=== PATIENT | male | born 1960 | race Caucasian/White ===

== ENCOUNTER 2020-09-06 11:50 | Emergency (ER) | payer OTHER ==
[2020-09-06] MEDS ORDERED: Tenecteplase 50 MG Kit IV ONE (11:58)
[2020-09-06] MEDS ORDERED: Tenecteplase 50 MG Kit ONE (12:03)
[2020-09-06] MEDS ORDERED: Aspirin 81 MG Tab.Chew PO ONE (12:04)
[2020-09-06] MEDS ORDERED: Heparin Sodium 5,000 Units/ML Vial IVPUSH ONE (12:04)
[2020-09-06] MEDS ORDERED: Sodium Chloride 0.9% 10 ML Syringe FLUSH PRN (12:07)
--- NOTE | 2020-09-06 12:14 | EDM.PDOC ---
ED HPI GENERAL MEDICAL PROBLEM - General Chief Complaint: Chest Pain Stated Complaint: CHEST PAIN Time Seen by Provider: 09/06/20 11:55 Source of Information: Reports: Patient, Family History Limitations: Reports: No Limitations, Other (ED vital signs temp 96.7,, pulse 61, respiratory rate 21, blood pressure 154/100, pulse ox 95% on room air) - History of Present Illness INITIAL COMMENTS - FREE TEXT/NARRATIVE: 59-year-old male presents to the emergency department with complaints of midsternal chest pain that started at about 1030 this morning patient states he was working around the house when he developed what he describes as a pressure or discomfort. He denies any nausea, vomiting, diaphoresis or shortness of breath associated with pain. He denies any radiation of the chest pain. Patient states he took ibuprofen just prior to arrival and that did not help. He states he has a history of hypertension. Denies any history of previous [place], recent surgeries, or stroke. Mid-Sternal Chest Pain Score (Numeric/FACES): 7 - Related Data Allergies Allergy/AdvReac Type Severity Reaction Status Date / Time No Known Allergies Allergy Verified 09/06/20 12:07 Home Meds: Home Meds amLODIPine Besylate/Benazepril [Amlodipine-Benazepril 10-40 mg] 1 each PO DAILY 09/06/20 [History] carvediloL [Carvedilol] 25 mg PO BID 09/06/20 [History] diphenhydrAMINE HCL [Z-Sleep] 30 ml PO DAILY 09/06/20 [History] guanFACINE 1 mg PO DAILY 09/06/20 [History] ED ROS GENERAL - Review of Systems Review Of Systems: See Below Constitutional: Reports: No Symptoms. Denies: Diaphoresis HEENT: Reports: No Symptoms Respiratory: Reports: No Symptoms. Denies: Shortness of Breath, Pleuritic Chest Pain Cardiovascular: Reports: Chest Pain (midsternal pressure). Denies: Edema, Lightheadedness, Palpitations Endocrine: Reports: No Symptoms GI/Abdominal: Reports: No Symptoms : Reports: No Symptoms Musculoskeletal: Reports: No Symptoms Skin: Reports: No Symptoms Neurological: Reports: No Symptoms Psychiatric: Reports: No Symptoms Hematologic/Lymphatic: Reports: No Symptoms Immunologic: Reports: No Symptoms ED EXAM, GENERAL - Physical Exam Exam: See Below Exam Limited By: No Limitations General Appearance: Alert, WD/WN, Mild Distress Eye Exam: Bilateral Eye: PERRL Ears: Normal External Exam Nose: Normal Inspection Throat/Mouth: Normal Inspection, Normal Voice, No Airway Compromise Head: Atraumatic, Normocephalic Neck: Normal Inspection, Supple, Non-Tender, Full Range of Motion Respiratory/Chest: No Respiratory Distress, Lungs Clear, Normal Breath Sounds, No Accessory Muscle Use, Chest Non-Tender Cardiovascular: Normal Peripheral Pulses, Regular Rate, Rhythm, No Edema, No Murmur Peripheral Pulses: 2+: Radial (L), Radial (R) GI/Abdominal: Normal Bowel Sounds, Soft, Non-Tender, No Distention (Male) Exam: Deferred Rectal (Males) Exam: Deferred Back Exam: Normal Inspection, Full Range of Motion Extremities: Normal Inspection, Normal Range of Motion, Non-Tender, No Pedal Edema, Normal Capillary Refill Neurological: Alert, Oriented, Normal Cognition Psychiatric: Normal Affect, Normal Mood Skin Exam: Warm, Dry, Intact, Normal Color, No Rash Lymphatic: No Adenopathy #1 Interpretation EKG Date: 09/06/20 Time: 11:56 Rhythm: NSR Rate (Beats/Min): 61 [place]: Normal P-Wave: Present QRS: Normal ST-T: Elevated (in V1 and V2 with reciprocal changes in leads II, III, and AVF) QT: Normal Comparison: NA - No Prior EKG #2 Interpretation EKG Date: 09/06/20 Time: 12:52 Rhythm: NSR Rate (Beats/Min): 69 [place]: Normal P-Wave: Present QRS: Normal ST-T: Elevated (V1 and V2 with reciprocal changes in leads II, III, and AVF) QT: Normal Comparison: No Change Course - Vital Signs Text/Narrative:: Twelve-lead EKG reveals elevation in V1 and V2 with reciprocal changes in leads II, III and aVF. It appears this patient is having a STEMI. The patient's states that he does have an adverse allergy to aspirin as she states he took an 81 mg dose for about a week which led him to have a nosebleed. I believe it is in the patient's best interest to have aspirin 325 mg. I have ordered for the patient to receive aspirin 325 mg, TNKase, heparin bolus of 5000 units and heparin drip at 1000 units/h. I have phoned [facility] call and they will be returning my call. I have also ordered a CBC, CMP, magnesium, troponin, PT/INR, PTT, chest x-ray. Last Recorded V/S: Last Vital Signs Temp 96.7 F L 09/06/20 11:57 Pulse 68 09/06/20 12:42 Resp 21 H 09/06/20 11:57 BP 135/103 H 09/06/20 12:42 Pulse Ox 95 09/06/20 11:57 - Orders/Labs/Meds Orders: Active Orders 24 hr Category Date Time Status EKG Documentation Completion [RC] STAT Care 09/06/20 12:07 Active EKG Documentation Completion [RC] STAT Care 09/06/20 12:46 Active CBC W/O DIFF,HEMOGRAM [HEME] MOTH@0700 Lab 09/09/20 07:00 Ordered CBC W/O DIFF,HEMOGRAM [HEME] MOTH@0700 Lab 09/12/20 07:00 Ordered CBC W/O DIFF,HEMOGRAM [HEME] MOTH@0700 Lab 09/16/20 07:00 Ordered CBC W/O DIFF,HEMOGRAM [HEME] MOTH@0700 Lab 09/19/20 07:00 Ordered CBC W/O DIFF,HEMOGRAM [HEME] MOTH@0700 Lab 09/23/20 07:00 Ordered CBC W/O DIFF,HEMOGRAM [HEME] MOTH@0700 Lab 09/26/20 07:00 Ordered Heparin Sodium/D5W [Heparin 25,000 Units in D5W 500 ML] Med 09/06/20 12:15 Active 25,000 units in 500 ml IV TITRATE Sodium Chloride 0.9% [Saline Flush] Med 09/06/20 12:07 Active 10 ml FLUSH ASDIRECTED PRN Saline Lock Insert [OM.PC] Stat Oth 09/06/20 12:07 Ordered Medication Orders Heparin Sodium/Dextrose (Heparin 25,000 Units In D5w 500 Ml) 25,000 units in 500 mls @ 20 mls/hr IV TITRATE CARLOS; Protocol Last Admin: 09/06/20 12:18 Dose: 1,000 units/hr, 20 mls/hr Documented by: AKIL Cosigned by: MELISSA Sodium Chloride (Saline Flush) 10 ml FLUSH ASDIRECTED PRN PRN Reason: Keep Vein Open Last Admin: 09/06/20 12:21 Dose: 10 ml Documented by: AKIL Labs: Laboratory Tests 09/06/20 09/06/20 09/06/20 Range/Units 12:01 12:01 12:01 WBC 13.94 H (4.23-9.07) K/mm3 RBC 5.00 (4.63-6.08) M/mm3 Hgb 15.0 (13.7-17.5) gm/dl Hct 45.3 (40.1-51.0) % MCV 90.6 (79.0-92.2) fl MCH 30.0 (25.7-32.2) pg MCHC 33.1 (32.2-35.5) g/dl RDW Std Deviation 44.4 H (35.1-43.9) fL Plt Count 277 (163-337) K/mm3 MPV 10.2 (9.4-12.3) fl Neut % (Auto) 66.9 (34.0-67.9) % Lymph % (Auto) 19.2 L (21.8-53.1) % [place] % (Auto) 10.5 (5.3-12.2) % Eos % (Auto) 2.6 (0.8-7.0) Baso % (Auto) 0.4 (0.1-1.2) % Neut # (Auto) 9.33 H (1.78-5.38) K/mm3 Lymph # (Auto) 2.67 (1.32-3.57) K/mm3 [place] # (Auto) 1.47 H (0.30-0.82) K/mm3 Eos # (Auto) 0.36 (0.04-0.54) K/mm3 Baso # (Auto) 0.06 (0.01-0.08) K/mm3 Manual Slide Review Normal smear PT 10.8 (9.7-12.0) SECONDS INR 1.01 APTT 26.5 (21.7-31.4) SECONDS Sodium 144 (136-145) mEq/L Potassium 3.7 (3.5-5.1) mEq/L Chloride 103 (98-107) mEq/L Carbon Dioxide 30 (21-32) mEq/L Anion Gap 14.7 (5-15) BUN 15 (7-18) mg/dL Creatinine 1.2 (0.7-1.3) mg/dL Est Cr Clr Drug Dosing 72.75 mL/min Estimated GFR (MDRD) > 60 (>60) mL/min BUN/Creatinine Ratio 12.5 L (14-18) Glucose 185 H (74-106) mg/dL Calcium 9.1 (8.5-10.1) mg/dL Magnesium 2.3 (1.8-2.4) mg/dl Total Bilirubin 0.6 (0.2-1.0) mg/dL AST 23 (15-37) U/L ALT 41 (16-63) U/L Alkaline Phosphatase 70 (46-116) U/L CK-MB (CK-2) (0-3.6) ng/ml Troponin I < 0.017 (0.00-0.056) ng/mL Total Protein 8.2 (6.4-8.2) g/dl Albumin 3.7 (3.4-5.0) g/dl Globulin 4.5 gm/dL Albumin/Globulin Ratio 0.8 L (1-2) SARS-CoV-2 RNA ([facility]) (NEGATIVE) 09/06/20 09/06/20 Range/Units 12:01 12:08 WBC (4.23-9.07) K/mm3 RBC (4.63-6.08) M/mm3 Hgb (13.7-17.5) gm/dl Hct (40.1-51.0) % MCV (79.0-92.2) fl MCH (25.7-32.2) pg MCHC (32.2-35.5) g/dl RDW Std Deviation (35.1-43.9) fL Plt Count (163-337) K/mm3 MPV (9.4-12.3) fl Neut % (Auto) (34.0-67.9) % Lymph % (Auto) (21.8-53.1) % [place] % (Auto) (5.3-12.2) % Eos % (Auto) (0.8-7.0) Baso % (Auto) (0.1-1.2) % Neut # (Auto) (1.78-5.38) K/mm3 Lymph # (Auto) (1.32-3.57) K/mm3 [place] # (Auto) (0.30-0.82) K/mm3 Eos # (Auto) (0.04-0.54) K/mm3 Baso # (Auto) (0.01-0.08) K/mm3 Manual Slide Review PT (9.7-12.0) SECONDS INR APTT (21.7-31.4) SECONDS Sodium (136-145) mEq/L Potassium (3.5-5.1) mEq/L Chloride (98-107) mEq/L Carbon Dioxide (21-32) mEq/L Anion Gap (5-15) BUN (7-18) mg/dL Creatinine (0.7-1.3) mg/dL Est Cr Clr Drug Dosing mL/min Estimated GFR (MDRD) (>60) mL/min BUN/Creatinine Ratio (14-18) Glucose (74-106) mg/dL Calcium (8.5-10.1) mg/dL Magnesium (1.8-2.4) mg/dl Total Bilirubin (0.2-1.0) mg/dL AST (15-37) U/L ALT (16-63) U/L Alkaline Phosphatase (46-116) U/L CK-MB (CK-2) 1.2 (0-3.6) ng/ml Troponin I (0.00-0.056) ng/mL Total Protein (6.4-8.2) g/dl Albumin (3.4-5.0) g/dl Globulin gm/dL Albumin/Globulin Ratio (1-2) SARS-CoV-2 RNA ([facility]) Negative (NEGATIVE) Meds: Medications Generic Name Dose Route Start Last Admin Trade Name Freq PRN Reason Stop Dose Admin Heparin Sodium/Dextrose 25,000 units in 500 mls @ 20 mls/hr 09/06/20 12:15 09/06/20 12:18 Heparin 25,000 Units In D5w 500 Ml IV 1,000 units/hr TITRATE CARLOS 20 mls/hr Administration Protocol 1,000 UNITS/HR Sodium Chloride 10 ml 09/06/20 12:07 09/06/20 12:21 Saline Flush FLUSH 10 ml ASDIRECTED PRN Administration Keep Vein Open Discontinued Medications Generic Name Dose Route Start Last Admin Trade Name Freq PRN Reason Stop Dose Admin Aspirin 324 mg 09/06/20 12:04 09/06/20 12:11 Aspirin PO 09/06/20 12:05 324 mg ONETIME ONE Administration Clopidogrel Bisulfate 300 mg 09/06/20 12:29 09/06/20 12:35 Plavix PO 09/06/20 12:30 300 mg ONETIME ONE Administration Fentanyl 50 mcg 09/06/20 12:17 09/06/20 12:21 Sublimaze IVPUSH 09/06/20 12:18 50 mcg ONETIME ONE Administration Heparin Sodium (Porcine) 5,000 units 09/06/20 12:04 09/06/20 12:13 Heparin Sodium IVPUSH 09/06/20 12:05 5,000 units ONETIME ONE Administration Ondansetron HCl 4 mg/ Sodium 52 mls @ 100 mls/hr 09/06/20 12:56 Chloride IV 09/06/20 13:28 ONETIME ONE Metoprolol Tartrate 25 mg 09/06/20 12:29 09/06/20 12:42 Lopressor PO 09/06/20 12:30 25 mg ONETIME ONE Administration Ondansetron HCl Confirm 09/06/20 12:57 Zofran Administered 09/06/20 12:58 Dose 4 mg .ROUTE .STK-MED ONE Tenecteplase 50 mg 09/06/20 11:58 09/06/20 12:12 Tnkase IV 09/06/20 11:59 50 mg ONETIME ONE Administration Protocol Tenecteplase Confirm 09/06/20 12:03 09/06/20 12:13 Tnkase Administered 09/06/20 12:04 Not Given Dose 50 mg .ROUTE .STK-MED ONE - Radiology Interpretation Free Text/Narrative:: Nothing acute is appreciated on portable chest x-ray. There is no widened mediastinum. - Re-Assessments/Exams Free Text/Narrative Re-Assessment/Exam: 09/06/20 12:17 I have ordered for the patient to receive Fentanyl 50mcg IV push one time. 09/06/20 12:25 Dr. Clark, internal communications intern, has accepted care of the patient. He will be transferred to [facility] in [place]. Per Dr. Worley's request, [facility] helicopter will be arranged. Dr. Clark also request that we give the patient Plavix 300 mg p.o. x1 dose and metoprolol 25 mg p.o. x1 dose now. Patient reports that he is no longer having chest pain at this time. Denies complaints of nausea 09/06/20 12:42 [facility] call reporting that there will be a 30-minute delay for their helicopter to be able to launch from [place] to come and get the patient. I have elected to have the patient transported by ground ambulance as this will be the fastest route for the patient. 09/06/20 12:56 Labs reveal WBC 13.94 this elevation is likely due to a stress response, PT 10.8 INR 1.01, PTT 26.5, sodium 144, potassium 3.7, BUN 15, creatinine 1.2, glucose 185, troponin less than 0.017 Departure - Departure Time of Disposition: 13:00 Disposition: DC/Tfer to Acute Hospital 02 Reason for Transfer *Q: Primary PCI Indicated Condition: Fair Clinical Impression: STEMI (ST elevation myocardial infarction) Qualifiers: Involved coronary artery: unspecified coronary artery Qualified Code(s): I21.3 - ST elevation (STEMI) myocardial infarction of unspecified site Referrals: Barber Golden Jr, MD [Primary Care Provider] - Forms: ED Department Discharge Sepsis Event Note (ED) - Evaluation Sepsis Screening Result: No Definite Risk - Focused Exam Vital Signs: Vital Signs Temp Pulse Pulse Resp BP BP Pulse Ox 09/06/20 12:42 68 135/103 H 09/06/20 11:57 96.7 F L 61 21 H 154/100 H 95 - My Orders Last 24 Hours: My Active Orders 09/06/20 12:07 EKG Documentation Completion [RC] STAT Sodium Chloride 0.9% [Saline Flush] 10 ml FLUSH ASDIRECTED PRN Saline Lock Insert [OM.PC] Stat 09/06/20 12:15 Heparin Sodium/D5W [Heparin 25,000 Units in D5W 500 ML] 25,000 units in 500 ml IV TITRATE 09/06/20 12:46 EKG Documentation Completion [RC] STAT 09/09/20 07:00 CBC W/O DIFF,HEMOGRAM [HEME] MOTH@0700 09/12/20 07:00 CBC W/O DIFF,HEMOGRAM [HEME] MOTH@0700 09/16/20 07:00 CBC W/O DIFF,HEMOGRAM [HEME] MOTH@0700 09/19/20 07:00 CBC W/O DIFF,HEMOGRAM [HEME] MOTH@0709/23/20 07:00 CBC W/O DIFF,HEMOGRAM [HEME] MOTH@0709/26/20 07:00 CBC W/O DIFF,HEMOGRAM [HEME] MOTH@07 - Assessment/Plan Last 24 Hours: My Active Orders 09/06/20 12:07 EKG Documentation Completion [RC] STAT Sodium Chloride 0.9% [Saline Flush] 10 ml FLUSH ASDIRECTED PRN Saline Lock Insert [OM.PC] Stat 09/06/20 12:15 Heparin Sodium/D5W [Heparin 25,000 Units in D5W 500 ML] 25,000 units in 500 ml IV TITRATE 09/06/20 12:46 EKG Documentation Completion [RC] STAT 09/09/20 07:00 CBC W/O DIFF,HEMOGRAM [HEME] MOTH@0709/12/20 07:00 CBC W/O DIFF,HEMOGRAM [HEME] MOTH@0709/16/20 07:00 CBC W/O DIFF,HEMOGRAM [HEME] MOTH@0709/19/20 07:00 CBC W/O DIFF,HEMOGRAM [HEME] MOTH@0709/23/20 07:00 CBC W/O DIFF,HEMOGRAM [HEME] MOTH@0709/26/20 07:00 CBC W/O DIFF,HEMOGRAM [HEME] MOTH@699
[2020-09-06] MEDS ORDERED: Heparin Sodium/D5W 25,000 UNITS/500 ML BAG IV SCH (12:15)
[2020-09-06] MEDS ORDERED: fentaNYL 100 MCG/2 ML SDV IVPUSH ONE (12:17)
[2020-09-06] MEDS ORDERED: Clopidogrel 75 MG Tab PO ONE (12:29)
[2020-09-06] MEDS ORDERED: Metoprolol Tartrate 25 MG Tab PO ONE (12:29)
--- NOTE | 2020-09-06 12:50 | CR ---
Chest: Portable view of the chest was obtained. Comparison: No prior chest imaging is available. Heart size and mediastinum are within normal limits for portable technique. Lungs show no definite acute parenchymal change. Minimal scoliosis is noted within the spine. Impression: 1. Nothing acute is seen on portable chest x-ray. Diagnostic code #2
[2020-09-06] MEDS ORDERED: Ondansetron 4 MG/2 ML SDV IVPUSH ONE (12:52)
[2020-09-06] MEDS ORDERED: Ondansetron 4 MG in Sodium Chloride 0.9% 50 ML IV ONE (12:56)
[2020-09-06] MEDS ORDERED: Ondansetron 4 MG/2 ML SDV ONE (12:57)
== END 2020-09-06 12:55 ==
LOC: JD.ED 11:50
DX: I21.3 ST elevation (STEMI) myocardial infarction of unspecified site (principal); D72.829 Elevated white blood cell count, unspecified; Z20.822 Contact with and (suspected) exposure to COVID-19
CPT/HCPCS: 36415; 37195; 71045; 80053; 82553; 83735; 84484; 85025; 85610; 85730; 87635; 93005; 96365; 96375; 99285; A9270; J1644; J2405; J3010; J3101; 93010; 99284; U0002

== ENCOUNTER 2021-07-13 09:10 | Emergency (ER) | payer OTHER ==
[2021-07-13] MEDS ORDERED: HYDROmorphone 1 MG/ML Syringe IVPUSH ONE (09:39)
[2021-07-13] MEDS ORDERED: Metoclopramide 10 MG/2 ML SDV IVPUSH ONE (09:40)
--- NOTE | 2021-07-13 09:41 | EDM.PDOC ---
ED HPI GENERAL MEDICAL PROBLEM - General Chief Complaint: Flank Pain Stated Complaint: KIDNEY STONES Time Seen by Provider: 07/13/21 09:26 Source of Information: Reports: Patient, Family (spouse) - History of Present Illness INITIAL COMMENTS - FREE TEXT/NARRATIVE: 60-year-old male presents to the ED with acute onset of left flank pain starting middle of night he believes around 330 or 4:00. It is staying in his left flank and not radiaing into the abdomen or groin. He has had renal colic at least 4 times in the past with the last episode occurring about 2-1/2 years ago. Associated nausea without vomiting. Pain is intensifying over the last few hours. He has not noted any blood in his urine. He did notice a few drops of blood however on his undershorts this morning. He felt his left back hurting a bit 2 weeks ago but then it seemed to clear up. No associated dysuria urgency or frequency. He has nocturia usually x1 or 2. No fever or chills. Onset: Today, Sudden Onset Date: 07/13/21 Onset Time: 03:30 Duration: Hour(s):, Colic, Constant (Left flank pain), Getting Worse Location: Reports: Back (Left flank pain with a colicky component but pain is constant.) Quality: Reports: Ache, Throbbing Severity: Moderate (7-8 out of 10.) Improves with: Reports: None Worsens with: Reports: None Context: Reports: Other (Spontaneous occurrence of left flank pain during the night). Denies: Activity, Exercise, Lifting, Sick Contact, Trauma Associated Symptoms: Reports: Loss of Appetite, Malaise (Nausea without vomit ing), Nausea/Vomiting. 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 (see below) (None.) - Related Data Allergies Allergy/AdvReac Type Severity Reaction Status Date / Time No Known Allergies Allergy Verified 09/06/20 12:07 Home Meds: Home Meds amLODIPine Besylate/Benazepril [Amlodipine-Benazepril 10-40 mg] 1 each PO DAILY 09/06/20 [History] carvediloL [Carvedilol] 25 mg PO BID 09/06/20 [History] diphenhydrAMINE HCL [Z-Sleep] 30 ml PO DAILY 09/06/20 [History] guanFACINE 1 mg PO DAILY 09/06/20 [History] Ondansetron [Zofran] 4 mg BUCCAL Q6H PRN #6 tab 07/13/21 [Rx] oxyCODONE HCl/Acetaminophen [Percocet 5-325 mg Tablet] 1 - 2 each PO Q4H PRN #12 tablet 07/13/21 [Rx] Past Medical History Cardiovascular History: Reports: Hypertension Genitourinary History: Reports: Renal Calculus (Least 4 attacks of renal colic. He has had to have lithotripsy x2. 1 stone was 10.2 mm.) Social & Family History - Family History Cardiac: Reports: MD - Caffeine Use Caffeine Use: Reports: Tea - Living Situation & Occupation Living situation: Reports: Occupation: Employed ED ROS GENERAL - Review of Systems Review Of Systems: See Below Constitutional: Reports: Fatigue, Decreased Appetite (Not sleeping much last night.). Denies: Fever, Chills, Malaise HEENT: Reports: Glasses Respiratory: Reports: No Symptoms Cardiovascular: Reports: Blood Pressure Problem Endocrine: Reports: No Symptoms GI/Abdominal: Reports: Constipation, Other (Occasional problems with GERD). Denies: Abdominal Pain, Anorexia, Black Stool, Bloody Stool, Decreased Appetite, Difficulty Swallowing, Distension, Flatus, Hematemesis (Rare problems with constipation), Hematochezia : Reports: Flank Pain, Other (See history of present illness nocturia x2) Musculoskeletal: Reports: Joint Pain (Knees hips lower back) Skin: Reports: No Symptoms ( shoulders at times) Neurological: Reports: No Symptoms Psychiatric: Reports: No Symptoms Hematologic/Lymphatic: Reports: No Symptoms Immunologic: Reports: No Symptoms ED EXAM, RENAL/ - Physical Exam Exam: See Below Exam Limited By: No Limitations General Appearance: Alert, WD/WN, Mild Distress, Other (Very stoic fellow. Temperature is 36.3 degrees. Heart rate 56 and sinus respiratory 16 with O2 sats of 98% room air. BP 154/97) Eye Exam: Bilateral Eye: Normal Inspection (No blepharal pallor or scleral icterus), PERRL Throat/Mouth: Normal Inspection, Normal Lips, Normal Voice Head: Atraumatic, Normocephalic Neck: Normal Inspection, Supple, Non-Tender, Full Range of Motion Respiratory/Chest: No Respiratory Distress, Lungs Clear, Normal Breath Sounds, No Accessory Muscle Use, Chest Non-Tender Cardiovascular: Normal Peripheral Pulses, Regular Rate, Rhythm, No Edema, No Gallop, No JVD, No Rub, Bradycardia GI/Abdominal: Soft, Non-Tender, No Organomegaly, No Distention, Abnormal Bowel Sounds (Bowel sounds are few and far between.). No: Normal Bowel Sounds, Guarding, Rigid, Rebound (Male) Exam: No Hernia Back Exam: Normal Inspection, CVA Tenderness (L) (Minimal left flank tenderness on palpation). No: CVA Tenderness (R) Extremities: Normal Inspection, Normal Range of Motion, Non-Tender, No Pedal Edema, Slow Capillary Refill Neurological: Alert, Oriented, CN II-XII Intact, Normal Cognition Psychiatric: Normal Affect, Normal Mood Skin Exam: Warm, Dry, Intact, Normal Color, No Rash Course - Vital Signs Last Recorded V/S: Last Vital Signs Temp 36.3 C 07/13/21 09:22 Pulse 56 L 07/13/21 09:22 Resp 16 07/13/21 09:22 BP 154/97 H 07/13/21 09:22 Pulse Ox 98 07/13/21 09:22 - Orders/Labs/Meds Orders: Active Orders 24 hr Category Date Time Status Dextrose 5%-0.9% NaCl [Dextrose 5%-Normal Saline] 1,000 Med 07/13/21 09:45 Active ml IV ASDIRECTED Ketorolac [Toradol] Med 07/13/21 09:45 Active 30 mg IVPUSH ONETIME Medication Orders Dextrose/Sodium Chloride (Dextrose 5%-Normal Saline) 1,000 mls @ 150 mls/hr IV ASDIRECTED CARLOS Last Admin: 07/13/21 09:51 Dose: 150 mls/hr Documented by: GENOVEVA Ketorolac Tromethamine (Ketorolac 30 Mg/Ml Sdv) 30 mg IVPUSH ONETIME CARLOS Last Admin: 07/13/21 09:52 Dose: 30 mg Documented by: GENOVEVA Labs: Laboratory Tests 07/13/21 Range/Units 09:28 Urine Color Yellow (Yellow) Urine Appearance Clear (Clear) Urine pH 7.0 (5.0-8.0) Ur Specific [place] 1.025 (1.005-1.030) Urine Protein Trace H (Negative) Urine Glucose (UA) Negative (Negative) Urine Ketones Negative (Negative) Urine Occult Blood 3+ H (Negative) Urine Nitrite Negative (Negative) Urine Bilirubin Negative (Negative) Urine Urobilinogen 0.2 (0.2-1.0) Ur Leukocyte Esterase Negative (Negative) Urine RBC >100 H (0-5) /hpf Urine WBC 0-5 (0-5) /hpf Ur Squamous Epith Cells 0-5 (0-5) /hpf Urine Bacteria Few (FEW) /hpf Urine Mucus Few (FEW) /hpf Meds: Medications Generic Name Dose Route Start Last Admin Trade Name Freq PRN Reason Stop Dose Admin Dextrose/Sodium Chloride 1,000 mls @ 150 mls/hr 07/13/21 09:45 07/13/21 09:51 Dextrose 5%-Normal Saline IV 150 mls/hr ASDIRECTED CARLOS Administration Ketorolac Tromethamine 30 mg 07/13/21 09:45 07/13/21 09:52 Ketorolac 30 Mg/Ml Sdv IVPUSH 30 mg ONETIME CARLOS Administration Discontinued Medications Generic Name Dose Route Start Last Admin Trade Name Freq PRN Reason Stop Dose Admin Hydromorphone HCl 1 mg 07/13/21 09:39 07/13/21 09:50 Hydromorphone 1 Mg/Ml Syringe IVPUSH 07/13/21 09:40 1 mg ONETIME ONE Administration Metoclopramide HCl 10 mg 07/13/21 09:40 07/13/21 09:50 Metoclopramide 10 Mg/2 Ml Sdv IVPUSH 07/13/21 09:41 10 mg ONETIME ONE Administration - Radiology Interpretation Free Text/Narrative:: 60-year-old male presented to the ED with acute onset of left flank pain starting around 0 330 to 4 hours in the morning. Pain is constant with a colicky component. Patient recognized the signs and symptoms of kidney stone since she has had 4 bouts of renal lithiasis in the past. He has lithotripsy x2. 1 stone was greater than 10.2 mm.. Pain is staying in the left flank no radiation to the abdomen or groin. Associated nausea without vomiting. Examination is otherwise normal. Plan IV D5 normal saline at 150 mils an hour. He given Dilaudid 1 mg IV for pain relief with Reglan 7.5 mg IV for nausea relief and Toradol 30 mg IV for pain relief. Urinalysis to be collected. He will have CT of the abdomen per renal protocol - Re-Assessments/Exams Free Text/Narrative Re-Assessment/Exam: 07/13/21 10:35 Patient is feeling much improved. Pain is pretty well gone. CT exam reveals a stone in the proximal left ureter approximately 5.4 mm in length. Moderate degree of obstruction with significant perinephric stranding. There is cortical atrophy of both kidneys. Liver appears normal without any intraductal dilatation. Gallbladder is present without any stones. Pancreas appears normal there is several calcifications which appear vascular within the spleen. Spleen is normal size bowel does contain increased stool. Aorta looks very good with very minimal atherosclerosis. No aneurysm. Prostate is slightly enlarged. Plan patient be discharged home on Percocet tab 5/325 mg strength 1 or 2 every 4-6 hours as needed for pain relief. Zofran 4 mg sublingual every 4 to 6 hours p.m. for nausea relief. A strainer to make sure that he passes the stone sometime within the next 2 weeks. 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 He does not take Motrin due to coronary artery disease. 07/13/21 10:43 over read by radiologist indicates the stone is approximately 5.7 mm in size. No other abnormal calcifications are seen within the kidneys or ureters. No bladder calculi identified visualized lung bases show nothing acute. Small scattered calcified granulomas are seen within the spleen as noted above. Adrenal glands show no nodules. Pancreas is within normal limits. Gallbladder contains no calcified gallstones. Abdominal aorta shows minimal atherosclerotic calcification which continues into the iliac vessels. No aneurysm is seen. No retroperitoneal adenopathy or mesenteric abnormalities are seen. Appendix is seen which is normal. Diverticuli are seen within the sigmoid colon with no inflammatory change or evidence of diverticulitis. Prostate gland is somewhat enlarged. No pelvic mass or adenopathy is seen. Small fat-containing left inguinal hernia noted.Urinalysis shows trace of protein 3+ occult blood and the micro reveals negative leukocyte esterase with greater than 100 red blood cells per high-power field and no white cells. Departure - Departure Time of Disposition: 10:37 Disposition: Home, Self-Care 01 Condition: Fair Clinical Impression: Renal colic on left side - Discharge Information *PRESCRIPTION DRUG MONITORING PROGRAM REVIEWED*: Not Applicable *COPY OF PRESCRIPTION DRUG MONITORING REPORT IN PATIENT [place]: Not Applicable Prescriptions: oxyCODONE HCl/Acetaminophen [Percocet 5-325 mg Tablet] 1 - 2 each PO Q4H PRN #12 tablet PRN Reason: pain relief. Ondansetron [Zofran] 4 mg BUCCAL Q6H PRN #6 tab PRN Reason: nausea or vomiting Instructions: Low-Purine Eating Plan, Kidney Stones, Renal Colic, [id number] Referrals: Duy Polanco MD [Primary Care Provider] - Forms: ED Department Discharge, ED Return to Work/School Form Additional Instructions: Evaluation in the emergency room this morning in regards to acute onset of left flank pain associate with mild nausea and no vomiting. History of kidney stones passage at least 4 times in the past and lithotripsy on 2 occasions. Examination and history were compatible with renal colic. You were treated with intravenous medications Dilaudid 1 mg and Reglan 7.5 mg and Toradol 30 mg IV for pain relief. CT scan of the abdomen confirmed a 5.4 mm stone in the upper or proximal left ureter. It has about 9 inches to travel before it reaches the urinary bladder. He can drop it down the ureteric tube at any time over the next 2 weeks. She does screening your urine once the pain has reached your lowe r abdomen or groin with a urine strainer. If the stone has not passed on its own over the next 2 weeks then consultation with urologist is advised. In the interim may use Zofran 4 mg under the tongue every 4-6 hours as needed for relief of nausea or vomiting. Percocet tab 1 or 2 tablets every 4-6 hours necessary for pain relief as needed. You would need to return to the hospital if you develop any signs of fever chills or pain is uncontrolled or for severe nausea and vomiting occurs. 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 Note written to excuse you from work in this regard Sepsis Event Note (ED) - Focused Exam Vital Signs: Vital Signs Temp Pulse Resp BP Pulse Ox 07/13/21 09:22 36.3 C 56 L 16 154/97 H 98 - My Orders Last 24 Hours: My Active Orders 07/13/21 09:45 Dextrose 5%-0.9% NaCl [Dextrose 5%-Normal Saline] 1,000 ml IV ASDIRECTED Ketorolac [Toradol] 30 mg IVPUSH ONETIME - Assessment/Plan Last 24 Hours: My Active Orders 07/13/21 09:45 Dextrose 5%-0.9% NaCl [Dextrose 5%-Normal Saline] 1,000 ml IV ASDIRECTED Ketorolac [Toradol] 30 mg IVPUSH ONETIME
[2021-07-13] MEDS ORDERED: Dextrose 5%-0.9% NaCl 1,000 ML IV SCH (09:45)
[2021-07-13] MEDS ORDERED: Ketorolac 30 MG/ML SDV IVPUSH SCH (09:45)
--- NOTE | 2021-07-13 10:28 | CT ---
CT abdomen and pelvis Technique: Multiple axial sections were obtained from above the dome of the diaphragm inferiorly through the pubic symphysis. Intravenous and oral contrast were not utilized. Study has been performed as a ureteral stone protocol. Comparison: No prior abdominal or pelvic imaging is available. Findings: Mild inflammatory change is seen around the left kidney. Left collecting system is also slightly dilated. These findings are caused by an obstructing calculus located slightly past the UPJ measuring 5.7 mm. No other abnormal calcifications are seen within the kidneys or ureters. No bladder calculi are seen. Visualized lung bases show nothing acute. Noncontrast appearance of the liver shows no focal parenchymal abnormality. Spleen appears normal in size. Small scattered calcified granulomas are seen within the spleen. Adrenal glands show no nodule. Pancreas shows no abnormality. Gallbladder contains no calcified gallstones. Abdominal aorta shows mild atherosclerotic calcification which continues into the iliac vessels. No aneurysm is seen. No retroperitoneal adenopathy or mesenteric abnormalities are seen. Appendix is seen which is normal. Diverticuli are seen within the sigmoid colon with no inflammatory change or diverticulitis. Prostate gland is somewhat enlarged. No pelvic mass or adenopathy is seen. Small fat-containing left inguinal hernia is noted. Bone window settings were reviewed which appear within normal limits for the patient's age. Impression: 1. Inflammatory change around the left kidney with slightly prominent left-sided collecting system. These findings are caused by an obstructing calculus located slightly past the UPJ measuring 5.7 mm. 2. Other findings as described above which are felt to be nonacute. Diagnostic code #3
== END 2021-07-13 10:45 | disposition home or self-care (01) ==
LOC: JD.ED 09:10
DX: N20.1 Calculus of ureter (principal); I10 Essential (primary) hypertension; Z79.899 Other long term (current) drug therapy
CPT/HCPCS: 74176; 81001; 96374; 96375; 99284; J1170; J1885; J2765; J7042

== ENCOUNTER 2021-07-19 07:33 | Emergency (ER) | payer OTHER ==
[2021-07-19] MEDS ORDERED: Ondansetron 4 MG/2 ML SDV IVPUSH ONE (08:10)
[2021-07-19] MEDS ORDERED: Sodium Chloride 0.9% 10 ML Syringe FLUSH PRN (08:10)
[2021-07-19] MEDS ORDERED: Ketorolac 30 MG/ML SDV IVPUSH ONE (08:12)
[2021-07-19] MEDS ORDERED: Sodium Chloride 0.9% 1,000 ML IV SCH (08:15)
--- NOTE | 2021-07-19 08:34 | EDM.PDOC ---
ED HPI GENERAL MEDICAL PROBLEM - General Chief Complaint: Abdominal Pain Stated Complaint: CONSIPATION/KIDNEY STONE Time Seen by Provider: 07/19/21 08:00 Source of Information: Reports: Patient History Limitations: Reports: No Limitations - History of Present Illness INITIAL COMMENTS - FREE TEXT/NARRATIVE: The patient presents with left flank pain and abdominal pain. The patient was diagnosed with a 5.7mm kidney stone just distal to the UPJ on Wednesday. He has been taking oxycodone for the pain. He does not think he passed the stone. He still has pain. He also has some left lower abdominal pain. He has not had a bowel movement since Wednesday. He feels he is constipated. He has nausea and some vomiting. He has tried prune juice and a laxative to help have a bowel mo vement without luck. Onset: Gradual Duration: Day(s): Location: Reports: Abdomen, Back Quality: Reports: Sharp Severity: Severe Improves with: Reports: None Worsens with: Reports: None Associated Symptoms: Reports: Nausea/Vomiting. Denies: Chest Pain, Cough, Fever/Chills, Headaches, Shortness of Breath Abdomen Pain Score (Numeric/FACES): 8 - Related Data Allergies Allergy/AdvReac Type Severity Reaction Status Date / Time No Known Allergies Allergy Verified 07/19/21 07:47 Home Meds: Home Meds amLODIPine Besylate/Benazepril [Amlodipine-Benazepril 10-40 mg] 1 each PO DAILY 09/06/20 [History] carvediloL [Carvedilol] 25 mg PO BID 09/06/20 [History] diphenhydrAMINE HCL [Z-Sleep] 30 ml PO DAILY 09/06/20 [History] guanFACINE 1 mg PO DAILY 09/06/20 [History] Ondansetron [Zofran] 4 mg BUCCAL Q6H PRN #6 tab 07/13/21 [Rx] oxyCODONE HCl/Acetaminophen [Percocet 5-325 mg Tablet] 1 - 2 each PO Q4H PRN #12 tablet 07/13/21 [Rx] Ondansetron [Zofran ODT] 4 mg PO Q6H PRN #20 tab.dis 07/19/21 [Rx] oxyCODONE HCl/Acetaminophen [Percocet 5-325 mg Tablet] 1 - 2 each PO Q6HR PRN #20 tablet 07/19/21 [Rx] Past Medical History Cardiovascular History: Reports: High Cholesterol, Hypertension, [place] Other Gastrointestinal History: hernia operation Genitourinary History: Reports: Renal Calculus - Past Surgical History Other Cardiovascular Surgeries/Procedures: stent placed GI Surgical History: Reports: Appendectomy Social & Family History - Family History Cardiac: Reports: [place] - Tobacco Use Tobacco Use Status *Q: Never Tobacco User - Caffeine Use Caffeine Use: Reports: Tea - Recreational Drug Use Recreational Drug Use: No - Living Situation & Occupation Living situation: Reports: Occupation: Employed ED ROS GENERAL - Review of Systems Review Of Systems: See Below Constitutional: Reports: No Symptoms HEENT: Reports: No Symptoms Respiratory: Reports: No Symptoms Cardiovascular: Reports: No Symptoms Endocrine: Reports: No Symptoms GI/Abdominal: Reports: Abdominal Pain, Nausea : Reports: Flank Pain Musculoskeletal: Reports: No Symptoms Skin: Reports: No Symptoms Neurological: Reports: No Symptoms ED EXAM, GI/ABD - Physical Exam Exam: See Below Exam Limited By: No Limitations General Appearance: Alert, No Apparent Distress Ears: Normal External Exam Nose: Normal Inspection Head: Atraumatic, Normocephalic Neck: Normal Inspection Respiratory/Chest: No Respiratory Distress, Lungs Clear, Normal Breath Sounds Cardiovascular: Regular Rate, Rhythm, No Edema, No Murmur GI/Abdominal Exam: Soft, No Organomegaly, No Mass, Tender (moderate tenderness to the left lower abdomen) Back Exam: Normal Inspection Course - Vital Signs Last Recorded V/S: Last Vital Signs Temp 98.3 F 07/19/21 07:43 Pulse 68 07/19/21 07:43 Resp 12 07/19/21 07:43 BP 167/96 H 07/19/21 07:43 Pulse Ox 96 07/19/21 07:43 - Orders/Labs/Meds Orders: Active Orders 24 hr Category Date Time Status Peripheral IV Care [RC] . DIRECTED Care 07/19/21 08:11 Active Sodium Chloride 0.9% [Normal Saline] 1,000 ml Med 07/19/21 08:15 Active IV ASDIRECTED Sodium Chloride 0.9% [Saline Flush] Med 07/19/21 08:10 Active 10 ml FLUSH ASDIRECTED PRN ED Antiemetic Medication Reflex [OM.PC] Stat Oth 07/19/21 08:11 Ordered Peripheral IV Insertion Adult [OM.PC] Stat Oth 07/19/21 08:10 Ordered Medication Orders Sodium Chloride (Normal Saline) 1,000 mls @ 125 mls/hr IV ASDIRECTED CARLOS Last Admin: 07/19/21 08:30 Dose: 125 mls/hr Documented by: TAHIR Sodium Chloride (Sodium Chloride 0.9% 10 Ml Syringe) 10 ml FLUSH ASDIRECTED PRN PRN Reason: Keep Vein Open Last Admin: 07/19/21 08:30 Dose: 10 ml Documented by: TAHIR Labs: Laboratory Tests 07/19/21 07/19/21 07/19/21 Range/Units 08:10 08:25 08:25 WBC 12.16 H (4.23-9.07) K/mm3 RBC 4.76 (4.63-6.08) M/mm3 Hgb 14.4 (13.7-17.5) gm/dl Hct 44.2 (40.1-51.0) % MCV 92.9 H (79.0-92.2) fl MCH 30.3 (25.7-32.2) pg MCHC 32.6 (32.2-35.5) g/dl RDW Std Deviation 44.0 H (35.1-43.9) fL Plt Count 233 (163-337) K/mm3 MPV 10.1 (9.4-12.3) fl Neut % (Auto) 79.0 H (34.0-67.9) % Lymph % (Auto) 10.2 L (21.8-53.1) % [place] % (Auto) 10.0 (5.3-12.2) % Eos % (Auto) 0.4 L (0.8-7.0) Baso % (Auto) 0.2 (0.1-1.2) % Neut # (Auto) 9.61 H (1.78-5.38) K/mm3 Lymph # (Auto) 1.24 L (1.32-3.57) K/mm3 [place] # (Auto) 1.21 H (0.30-0.82) K/mm3 Eos # (Auto) 0.05 (0.04-0.54) K/mm3 Baso # (Auto) 0.03 (0.01-0.08) K/mm3 Sodium 141 (136-145) mEq/L Potassium 3.9 (3.5-5.1) mEq/L Chloride 102 (98-107) mEq/L Carbon Dioxide 30 (21-32) mEq/L Anion Gap 12.9 (5-15) BUN 22 H (7-18) mg/dL Creatinine 1.8 H (0.7-1.3) mg/dL Est Cr Clr Drug Dosing 47.90 mL/min Estimated GFR (MDRD) 39 (>60) mL/min BUN/Creatinine Ratio 12.2 L (14-18) Glucose 121 H (70-99) mg/dL Calcium 8.6 (8.5-10.1) mg/dL Total Bilirubin 0.5 (0.2-1.0) mg/dL AST 16 (15-37) U/L ALT 17 (16-63) U/L Alkaline Phosphatase 69 (46-116) U/L Total Protein 7.9 (6.4-8.2) g/dl Albumin 3.5 (3.4-5.0) g/dl Globulin 4.4 gm/dL Albumin/Globulin Ratio 0.8 L (1-2) Lipase 86 (73-393) U/L Urine Color Yellow (Yellow) Urine Appearance Clear (Clear) Urine pH 5.5 (5.0-8.0) Ur Specific [place] > or = 1.030 (1.005-1.030) Urine Protein 2+ H (Negative) Urine Glucose (UA) Negative (Negative) Urine Ketones 1+ H (Negative) Urine Occult Blood 3+ H (Negative) Urine Nitrite Negative (Negative) Urine Bilirubin Negative (Negative) Urine Urobilinogen 1.0 (0.2-1.0) Ur Leukocyte Esterase Negative (Negative) Urine RBC >100 H (0-5) /hpf Urine WBC 0-5 (0-5) /hpf Ur Squamous Epith Cells 0-5 (0-5) /hpf Urine Bacteria Few (FEW) /hpf Urine Mucus Few (FEW) /hpf Meds: Medications Generic Name Dose Route Start Last Admin Trade Name Freq PRN Reason Stop Dose Admin Sodium Chloride 1,000 mls @ 125 mls/hr 07/19/21 08:15 07/19/21 08:30 Normal Saline IV 125 mls/hr ASDIRECTED CARLOS Administration Sodium Chloride 10 ml 07/19/21 08:10 07/19/21 08:30 Sodium Chloride 0.9% 10 Ml Syringe FLUSH 10 ml ASDIRECTED PRN Administration Keep Vein Open Discontinued Medications Generic Name Dose Route Start Last Admin Trade Name Nicholas PRN Reason Stop Dose Admin Ketorolac Tromethamine 30 mg 07/19/21 08:12 07/19/21 08:29 Ketorolac 30 Mg/Ml Sdv IVPUSH 07/19/21 08:13 30 mg ONETIME ONE Administration Ondansetron HCl 4 mg 07/19/21 08:10 07/19/21 08:30 Ondansetron 4 Mg/2 Ml Sdv IVPUSH 07/19/21 08:11 4 mg ONETIME ONE Administration - Re-Assessments/Exams Free Text/Narrative Re-Assessment/Exam: 07/19/21 08:34 I ordered an IV NS at 125mL/hr, zofran 4mg IV, toradol 30mg IV, labs, UA and a KUB. 07/19/21 11:28 His WBC was elevated at 12.16. His creatinine is elevated at 1.8. In August it was 1.2. His lipase was normal. His UA shows blood and no UTI. I called [facility] and talked with Dr Naik the urologist cotton puller and he can get the patient in on Wednesday with his MANUFACTURING ENGINEERING MANAGER Parisa [facility]. I will discharge him home. Departure - Departure Time of Disposition: 11:50 Disposition: Home, Self-Care 01 Condition: Good Clinical Impression: Kidney stone on left side, Renal colic on left side, Ureteral calculus, left - Discharge Information *PRESCRIPTION DRUG MONITORING PROGRAM REVIEWED*: Not Applicable *COPY OF PRESCRIPTION DRUG MONITORING REPORT IN PATIENT [place]DE[place]: Not Applicable Prescriptions: oxyCODONE HCl/Acetaminophen [Percocet 5-325 mg Tablet] 1 - 2 each PO Q6HR PRN #20 tablet PRN Reason: Pain Ondansetron [Zofran ODT] 4 mg PO Q6H PRN #20 tab.dis PRN Reason: Nausea\vomiting Referrals: Aleyda Bernard MD [Primary Care Provider] - Forms: ED Department Discharge Additional Instructions: Take your medications as prescribed. I have written for more percocets and zofran if you need them. Drink plenty of fluids. Use a fleets enema to help have a bowel movement. You can also try some magnesium citrate. Follow up with ANDRA Lopez with the urology clinic at [facility] on Wednesday at 2:30 [place] time. Please return if you are worse. Sepsis Event Note (ED) - Evaluation Sepsis Screening Result: No Definite Risk - Focused Exam Vital Signs: Vital Signs Temp Pulse Resp BP Pulse Ox 07/19/21 07:43 98.3 F 68 12 167/96 H 96 - My Orders Last 24 Hours: My Active Orders 07/19/21 08:10 Sodium Chloride 0.9% [Saline Flush] 10 ml FLUSH ASDIRECTED PRN Peripheral IV Insertion Adult [OM.PC] Stat 07/19/21 08:11 Peripheral IV Care [RC] . DIRECTED ED Antiemetic Medication Reflex [OM.PC] Stat 07/19/21 08:15 Sodium Chloride 0.9% [Normal Saline] 1,000 ml IV ASDIRECTED - Assessment/Plan Last 24 Hours: My Active Orders 07/19/21 08:10 Sodium Chloride 0.9% [Saline Flush] 10 ml FLUSH ASDIRECTED PRN Peripheral IV Insertion Adult [OM.PC] Stat 07/19/21 08:11 Peripheral IV Care [RC] . DIRECTED ED Antiemetic Medication Reflex [OM.PC] Stat 07/19/21 08:15 Sodium Chloride 0.9% [Normal Saline] 1,000 ml IV ASDIRECTED
--- NOTE | 2021-07-19 09:15 | CR ---
Abdomen: Supine view of the abdomen was obtained. Comparison: Prior abdominal and pelvic CT exam of 07/13/21. Small calcification is seen slightly above the L5 transverse process most likely representing previously noted more proximal ureteral stone on CT study. On plain film exam this measures about 4 mm which is slightly overestimated in measurement. No other abnormal calcifications are appreciated. Bowel gas pattern appears normal. Slight degenerative change is noted within the spine. Minimal joint space narrowing is seen within the superior right hip. Impression: 1. Small 4 mm calcification slightly above the left L5 transverse process most likely representing previous ureteral stone seen more proximal on prior CT exam. 2. Mild degenerative change without other acute abnormality being seen. Diagnostic code #3
--- NOTE | 2021-07-19 10:04 | CT ---
CT abdomen and pelvis Technique: Multiple axial sections were obtained from above the dome of the diaphragm inferiorly through the pubic symphysis. Intravenous and oral contrast were not utilized. Reconstructed coronal and sagittal images were obtained. Comparison: Prior CT abdomen and pelvis study of 07/13/21. Findings: Small obstructing calculus is seen within the proximal left ureter. This finding measures approximately 5-6 mm. This small ureteral stone has minimally moved distally from prior exam. This causes proximal hydronephrosis with mild increasing inflammatory change around the left renal pelvis. Right and left kidneys show no other abnormal calcifications. Cyst is noted within the right kidney measuring approximately 2.8 cm. Visualized lung bases show nothing acute. Noncontrast appearance of the liver shows no focal abnormality. Gallbladder contains no calcified gallstones. Calcified granulomas are seen within the spleen. Spleen shows no enlargement. Adrenal glands show no discrete nodule. Pancreas shows no discrete abnormality. Abdominal aorta shows mild atherosclerotic calcification with no aneurysm. No retroperitoneal adenopathy is seen. No mesenteric abnormalities are seen. Appendix is seen which is normal. Diverticuli are seen within the sigmoid colon with no inflammatory change. No free fluid is seen within the pelvis or abdomen. Bone window settings were reviewed which appear within normal limits for the patient's age. Impression: 1. 5-6 mm calcification within the proximal left ureter which has moved slightly distally from prior study. This causes increased hydronephrosis proximally with mild increased inflammatory change also seen. 2. Small cyst within the right kidney. 3. Other findings as described above which are felt to be nonacute and chronic. Diagnostic code #3
== END 2021-07-19 12:10 | disposition home or self-care (01) ==
LOC: JD.ED 07:33
DX: N20.2 Calculus of kidney with calculus of ureter (principal); I10 Essential (primary) hypertension; I25.2 Old myocardial infarction; Z79.899 Other long term (current) drug therapy
CPT/HCPCS: 36415; 74018; 74176; 80053; 81001; 83690; 85025; 96374; 96375; 99284; J1885; J2405; J7030

== ENCOUNTER 2021-12-08 14:45 | Emergency (ER) | payer OTHER ==
[2021-12-08] MEDS ORDERED: cefTRIAXone 2 GM in Sodium Chloride 0.9% 100 ML IV ONE (16:02)
== END 2021-12-08 17:41 | disposition home or self-care (01) ==
LOC: JD.ED 14:45
DX: N39.0 Urinary tract infection, site not specified (principal); E78.00 Pure hypercholesterolemia, unspecified; I10 Essential (primary) hypertension; I25.2 Old myocardial infarction; Z79.899 Other long term (current) drug therapy
CPT/HCPCS: 36415; 74018; 80053; 81001; 83605; 83735; 85025; 86140; 87040; 87086; 87088; 87186; 96365; 99283; J0696